=== PATIENT | female | born 1945 | race Caucasian/White ===

== ENCOUNTER 2016-11-21 13:46 | Emergency (ER) | payer OTHER ==
[2016-11-21 13:57] VITALS: TEMP 97.9
--- NOTE | 2016-11-21 15:11 | EDPHY ---
H & P Stated Complaint: Fatigue, insomnia for a while;wants thyroid checked (had labs 2 mos ago) Time Seen by Provider: 11/21/16 14:52 HPI/ROS: CHIEF COMPLAINT: INSOMNIA HISTORY OF PRESENT ILLNESS: Patient is a 71-year-old female with a long history of insomnia. She states that with the help of her primary care doctor Jackie she recently weaned off of Effexor and Ambien. She continues to take Ativan and Xanax for sleep and anxiety however she states that she has not slept well for the last month or two She denies recent illness or fevers. She refuses to see a sleep specialist because she does not think that that is appropriate testing. She does see a functional medicine nurse practitioner who feels that she has adrenal fatigue. Patient also takes Synthroid and wants to get her thyroid panel checked as well as a cortisol level. She states that she feels like if she does not get any sleep soon she will impload and that her body will crash. She denies depression or suicidality. She states that her friend yesterday gave her Restoril 30 mg since she got 4 hours sleep which is the longest she has had in several weeks. REVIEW OF SYSTEMS: Constitutional: denies: chills, fever, recent illness, recent injury EENTM: denies: blurred vision, double vision, nose congestion Respiratory: denies: cough, shortness of breath Cardiac: denies: chest pain, irregular heart rate, lightheadedness, palpitations Gastrointestinal/Abdominal: denies: abdominal pain, diarrhea, nausea, vomiting, blood streaked stools Genitourinary: denies: dysuria, frequency, hematuria, pain Musculoskeletal: denies: joint pain, muscle pain Skin: denies: lesions, rash, jaundice, bruising Neurological: denies: headache, numbness, paresthesia, tingling, dizziness, weakness Hematologic/Lymphatic: denies: blood clots, easy bleeding, easy bruising Immunologic/allergic: denies: HIV/AIDS, transplant EXAM: GENERAL: Well-appearing, well-nourished and in no acute distress. HEAD: Atraumatic, normocephalic. EYES: Pupils equal round and reactive to light, extraocular movements intact, sclera anicteric, conjunctiva are normal. ENT: TMs normal, nares patent, oropharynx clear without exudates. Moist mucous membranes. NECK: Normal range of motion, supple without lymphadenopathy or JVD. LUNGS: Breath sounds clear to auscultation bilaterally and equal. No wheezes rales or rhonchi. HEART: Regular rate and rhythm without murmurs, rubs or gallops. ABDOMEN: Soft, nontender, normoactive bowel sounds. No guarding, no rebound. No masses appreciated. BACK: No CVA tenderness, no spinal tenderness, step-offs or deformities EXTREMITIES: Normal range of motion, no pitting or edema. No clubbing or cyanosis. NEUROLOGICAL: Cranial nerves II through XII grossly intact. Normal speech, normal gait. 5/5 strength, normal movement in all extremities, normal sensation PSYCH: Normal affect, normal conversation moderately anxious and worried SKIN: Warm, dry, normal turgor, no visible rashes or lesions. Source: Patient Exam Limitations: No limitations - Personal History Current Tetanus Diphtheria and Acellular Pertussis (TDAP): Unsure - Medical/Surgical History Hx Asthma: No Hx Chronic Respiratory Disease: No Hx Diabetes: No Hx Cardiac Disease: No Hx Renal Disease: No Hx Cirrhosis: No Hx Alcoholism: No Hx HIV/AIDS: No Hx Splenectomy or Spleen Trauma: No Other PMH: hch, hypothyroid, l hip sx, bunions. shelter insomnia "adrenal fatigue" - Family History Significant Family History: No pertinent family hx - Social History Smoking Status: Former smoker Alcohol Use: Sober Drug Use: None Constitutional: Initial Vital Signs Temperature (C) 36.6 C 11/21/16 13:50 Heart Rate 92 11/21/16 13:50 Respiratory Rate 18 11/21/16 13:50 Blood Pressure 143/106 H 11/21/16 13:50 O2 Sat (%) 93 11/21/16 13:50 O2 Delivery Mode Room Air Allergies/Adverse Reactions: Sulfa (Sulfonamide Antibiotics) Allergy (Verified 09/28/13 15:05) Home Medications: Medication Instructions Recorded SYNTHROID 08/31/10 LORazepam [Ativan (*)] 1 mg PO 11/21/16 Temazepam [Restoril] 30 mg PO HS #7 capsule 11/21/16 Medical Decision Making ED Course/Re-evaluation: I agreed to send thyroid and cortisol testing although I disclosed her that it would be more appropriate for her to follow up with a senior engineering manager over with her primary care physician. She agrees with this and would like to have her labs drawn and that she will follow up with her doctor tomorrow. I will also refer her to an senior engineering manager. She is also requesting a short-term prescription for Restoril. She denies depression or suicidality. Differential Diagnosis: Partial list of the Differential diagnosis considered include but were not limited to; insomnia, depression, anxiety and although unlikely based on the history and physical exam, I also considered bipolar, infection, head injury, seizures, cardiovascular disease. I discussed these differential diagnoses and the plan with the patient as well as the usual and expected course. The patient understands that the diagnosis is provisional and that in medicine we are not always correct and that further workup is often warranted. Usual and customary warnings were given. All of the patient's questions were answered. The patient was instructed to return to the emergency department should the symptoms at all worsen or return, otherwise to followup with the physician as we discussed. - Data Points Laboratory Results: 11/21/16 11/21/16 15:34 15:34 TSH 5.050 uIU/mL H uIU/mL (0.465-4.680) Free T4 1.10 ng/dL ng/dL (0.59-2.19) Free T3 2.61 pg/mL L pg/mL (2.77-5.27) Ur Creatinine Concen Pending Cortisol/Creat Ratio Pending Departure - Departure Disposition: Home, Routine, Self-Care Clinical Impression: Insomnia disorder Qualifiers: Insomnia type: primary Qualified Code(s): F51.01 - Primary insomnia Condition: Fair Instructions: Insomnia (ED) Referrals: Neha Ireland MD [Primary Care Provider] - As per Instructions Tal Singletary MD [Medical Doctor] - As per Instructions Prescriptions: Temazepam [Restoril] 30 mg PO HS #7 capsule
[2016-11-21 16:44] VITALS: BP 144/83; PULSE 80; RESP 16; O2SAT 94
[2016-11-23 15:36] LABS: CORTISOL/CREATININE RATIO 57 mcg/g Cr (0.7-85); CREATININE CONCENTRATION 53 mg/dL
== END 2016-11-21 16:42 | disposition home or self-care (01) ==
LOC: EEVIPCON 13:46
DX: F51.01 Primary insomnia (principal); Z87.891 Personal history of nicotine dependence
CPT/HCPCS: 82530-90; 83789-90; 84481-90

== ENCOUNTER → 2018-04-09 | Outpatient (CLI) | payer OTHER | END | disposition home or self-care (01) | LOC: BMCIMAGING 13:25 | PROVIDERS: ATTEND Internal Medicine | DX: Z13.820 Encounter for screening for osteoporosis (principal); Z78.0 Asymptomatic menopausal state; E07.9 Disorder of thyroid, unspecified; Z79.899 Other long term (current) drug therapy; Z87.828 Personal history of other (healed) physical injury and trauma ==